=== PATIENT | female | born 1960 | race Caucasian/White ===

== ENCOUNTER 2017-03-01 22:23 | Emergency (ER) | payer SELFPAY ==
[~2017-03-01] VITALS: Ht 149.9 cm; Wt 72.6 kg
[2017-03-01 22:50] VITALS: BP 145/88
[2017-03-01] MEDS ORDERED: BENA20TA PO (22:56)
[2017-03-01] MEDS ORDERED: FURO-572 PO (22:56)
[2017-03-01] MEDS ORDERED: METF500T2 PO (22:56)
[2017-03-01 23:24] LABS: HEMATOCRIT 34.9 % (36-48); HEMOGLOBIN 11.7 g/dL (12.0-16.0); MEAN CORPUSCULAR HEMOGLOBIN 34 pg (27-31); MEAN CORPUSCULAR HGB CONC 34 g/dL (33-37); MEAN CORPUSCULAR VOLUME 101 fL (80-94); PLATELET COUNT (AUTO) 155 K/uL (140-450); RED BLOOD CELL COUNT(AUTO) 3.44 MIL/uL (4.20-5.40); RED CELL DISTRIBUTION WIDTH 17.4 % (11.6-13.7)
[2017-03-01 23:42] LABS: ANION GAP 12.1 (8-16); CREATININE 1.1 mg/dL (0.6-1.3); POTASSIUM 4.1 mmol/L (3.5-5.1)
[2017-03-01 23:43] LABS: BASOPHILS % (MANUAL) 1 % (0-2); EOSINOPHILS % (MANUAL) 4 % (0-4); LYMPHOCYTES % (MANUAL) 23 % (20-46); MONOCYTES % (MANUAL) 7 % (5-12); PROTHROMBIN TIME 12.7 secs (10.8-13.4)
[2017-03-01 23:48] LABS: ALBUMIN 2.8 g/dL (3.4-5.0); TOTAL BILIRUBIN 4.8 mg/dL (0.0-1.0)
--- NOTE | 2017-03-02 00:46 | NUR ---
PT TAKEN TO BED 11
--- NOTE | 2017-03-02 01:17 | NUR ---
56/F BIB FAMILY C/O BL LOWER LEG SWELLING. PT STATES SWELLING HAS BEEN PRESENT FOR 3 WEEKS AND SHE WENT TO CLINIC ON SATURDAY AND THEY PRESCRIBED HER LASIX WITH NO IMPROVEMENT. PMH DM, HTN, . PT DENIES SOB, FEVER, N/V. PT HAS HAD DIARRHEA, LBM WAS TODAY, PT STATES SHE HAS HAD BLACK STOOLS 3 WEEKS AGO. PT STATES "SWEELING IN THE STOMACH IS GOING DOWN TO THE LEGS", ABDOMEN IS ROUND, SOFT, NON TENDER WITH ACTIVE BOWEL SOUNDS. PT POSTIONED FOR COMFORT. ER MD NOTIFIED OF PT STATUS. FAMILY AT BEDSIDE.
--- NOTE | 2017-03-02 01:31 | NUR ---
Dr. Fuller evaluating patient at bedside.
[2017-03-02 01:53] VITALS: BP 132/81
--- NOTE | 2017-03-02 01:55 | NUR ---
Patient discharged with v/s stable. Written and verbal after care instructions given and explained. Patient verbalized understanding. Ambulatory with steady gait. All questions addressed prior to discharge. Advised to follow up with PMD.
== END 2017-03-02 01:55 | disposition home or self-care (01) ==
LOC: MED 22:23
DX: R60.0 Localized edema (principal); R94.5 Abnormal results of liver function studies; E11.9 Type 2 diabetes mellitus without complications; I10 Essential (primary) hypertension
CPT/HCPCS: 36415; 80053; 81002; 82948; 83880; 84484; 85025; 85610; 85730; 99284